=== PATIENT | female | born 1950 | race African-American/Black ===

== ENCOUNTER 2022-01-26 08:59 | Emergency (ER) | payer OTHER, SELFPAY ==
--- NOTE | ~2022-01-26 | XR_ITS ---
EXAMINATION: XR finger 1st RT min 2V DATE: 01/26/2022 09:27 INDICATION: Distal right thumb pain post injury one week prior TECHNIQUE: Dorsal palmar, lateral and oblique views of the right first digit were obtained COMPARISON: None FINDINGS: Normal alignment at the right thumb. There is widening of the scapholunate interval consistent with d isruption of the scapholunate ligament. No fracture. Polyarticular osteoarthritis, moderate to severe at the triscaphe, first carpometacarpal and first metacarpophalangeal joints and mild at the wrist, midcarpal, second carpal phalangeal and first interphalangeal joints. Tiny corticated enthesopathic o ssicle at the dorsal margin of the base of the first proximal phalanx. Soft tissues are unremarkable. IMPRESSION: 1. Moderate to severe polyarticular osteoarthritis at the right thumb and radial aspect of the carpus . No acute osseous abnormality at the rectum. 2. Age-indeterminate tear of the scapholunate ligament with widening at the scapholunate interval. Reviewed, dictated and finalized at location A. [employer] IMPRESSION: 1. Moderate to severe polyarticular osteoarthritis at the right thumb and radia l aspect of the carpus. No acute osseous abnormality at the rectum. 2. Age-indeterminate tear of the scapholunate ligament with widening at the sca pholunate interval.
[2022-01-26 09:08] VITALS: BP 170/91; PULSE 106; RESP 18; TEMP 36.7; O2SAT 100
--- NOTE | 2022-01-26 09:40 | ED.UPPEXIN ---
HPI - Extremity Injury (Upper) General Chief Complaint: Extremity Injury, Upper Stated Complaint: right thumb pain Time Seen by Provider: 01/26/22 09:40 Source: patient, RN notes reviewed and old records reviewed Mode of arrival: ambulatory Limitations: no limitations History of Present Illness HPI narrative: 71-year-old female presents to the [facility] with complaints of right thumb pain since day before . Patient states that the only reason she is coming in is because she is having difficulty pulling her thumb into her bowling ball. Tender some pain only to the IP joint of the right thumb. Has good range of motion. Sensation intact. Capillary refill under 2 seconds Onset (ago): week(s) (2) Related Data Home Medications Medication Instructions Recorded Confirmed blood sugar diagnostic (Contour #10 ea 01/03/19 01/26/22 Test Strips) metformin 500 mg tablet 500 mg PO BID 02/13/19 01/26/22 Allergies Allergy/AdvReac Type Severity Reaction Status Date / Time levofloxacin Allergy Mild NAUSEA Verified 12/20/21 15:12 lisinopril Allergy Unknown Swelling Verified 12/20/21 15:12 of Lip/Tongue/Throat Review of Systems Review of Systems: All systems reviewed & are unremarkable except as noted in HPI and below Constitutional: Constitutional: Reports no additional constitutional complaints Eyes: Eyes: Reports no additional eye complaints ENT: Reports system reviewed and no additional complaints, except as documented Cardiovascular: Cardiovascular: Reports no additional cardiovascular complaints, Denies chest pain and Denies dyspnea Respiratory: Respiratory: Reports no additional respiratory complaints, Denies chest congestion, Denies cough and Denies dyspnea Gastrointestinal: Gastrointestinal: Reports no additional gastrointestinal complaints, Denies abdominal pain, Denies nausea and Denies vomiting Musculoskeletal: Musculoskeletal: Reports as per HPI Integumentary/Breasts: Skin/Breast: Reports system reviewed and no additional complaints, except as docu Neurologic: Reports system reviewed and no additional complaints, except as documented Psychiatric: Psychiatric: Reports no additional psychiatric complaints Allergic/Immunologic: Allergic/Immunologic: Reports no additional allergic/immunologic complaints PMFSH Past Medical History Medical History Acute right-sided low back pain with right-sided sciatica Adenocarcinoma of lung Back pain of lumbar region with sciatica Body mass index [BMI] 34.0-34.9, adult (05/20/15) Body mass index [BMI] 37.0-37.9, adult (01/18/17) Body mass index [BMI] 38.0-38.9, adult (06/08/15) Chronic left shoulder pain Diabetes mellitus Emphysema, unspecified Facial edema GERD without esophagitis HLD (hyperlipidemia) Incomplete tear of left rotator cuff Left hip pain Other chronic pain Other screening mammogram Polyosteoarthritis, unspecified Right hip pain Sleep apnea in adult Trochanteric bursitis of left hip 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 There is no relevant family history pertinent to the patient complaint. Exam Const
== END 2022-01-26 10:16 | disposition home or self-care (01) ==
PROVIDERS: Emergency Provider Nurse Practitioner; PCP Emergency Medicine
DX: M18.11 Unilateral primary osteoarthritis of first carpometacarpal joint, right hand (principal); S63.601A Unspecified sprain of right thumb, initial encounter; X58.XXXA Exposure to other specified factors, initial encounter; E11.9 Type 2 diabetes mellitus without complications; K21.9 Gastro-esophageal reflux disease without esophagitis; E78.5 Hyperlipidemia, unspecified; J43.0 Unilateral pulmonary emphysema [MacLeod's syndrome]; Z87.891 Personal history of nicotine dependence
CPT/HCPCS: 73140; 99213; G0463

== ENCOUNTER 2023-07-19 15:38 | Emergency (ER) | payer OTHER, SELFPAY ==
--- NOTE | ~2023-07-19 | XR_ITS ---
EXAMINATION: XR hip LT min 2V DATE: 07/19/2023 16:18 INDICATION: Left hip pain. TECHNIQUE: 2 views of left hip were obtained. COMPARISON: Pelvis and left hip radiograph 05/20/2015 FINDINGS: Bone alignment is normal. No fracture. There is mild left hip osteoarthritis. Osteitis pubi s is noted. IMPRESSION: 1. Mild left hip osteoarthritis. Reviewed, dictated and finalized at location A.
[2023-07-19 15:54] VITALS: BP 158/57; PULSE 107; RESP 14; TEMP 37.1; O2SAT 99
--- NOTE | 2023-07-19 15:56 | ED.LOWEXIN ---
HPI - Extremity Injury (Lower) General Chief Complaint: Extremity Problem,Nontraumatic Stated Complaint: catch in left hip Time Seen by Provider: 07/19/23 15:42 Source: patient Mode of arrival: ambulatory Limitations: no limitations History of Present Illness HPI Narrative: Patient is a 73-year-old female that presents with left hip pain. Patient states the pain started 2-3 days. Denies any trauma or new activities. Denies any numbness, tingling or weakness down leg. Patient is taking tramadol and Aleve. Walks with a cane. History of bursitis in the hip. Related Data Home Medications Medication Instructions Recorded Confirmed blood sugar diagnostic (Contour #10 ea 01/03/19 07/19/23 Test Strips) metformin 500 mg tablet 500 mg PO DAILY 04/11/23 07/19/23 Allergies Allergy/AdvReac Type Severity Reaction Status Date / Time levofloxacin Allergy Mild NAUSEA Verified 07/19/23 15:46 lisinopril Allergy Unknown Swelling Verified 07/19/23 15:46 of Lip/Tongue/Throat Review of Systems Review of Systems: All systems reviewed & are unremarkable except as noted in HPI and below Constitutional: Constitutional: Denies body ache(s), Denies chills, Denies fatigue, Denies fever(s), Denies headache(s), Denies malaise and Denies weakness Eyes: Eyes: Denies blurry vision, Denies irritation and Denies loss of vision ENT: Denies otalgia, Denies headache(s), Denies nasal discharge, Denies sinus pain and Denies sore throat Cardiovascular: Cardiovascular: Denies chest pain, Denies irregular heart rhythm and Denies dyspnea Respiratory: Respiratory: Denies dyspnea Gastrointestinal: Gastrointestinal: Denies abdominal pain, Denies melena, Denies hematochezia, Denies diarrhea, Denies nausea and Denies vomiting Musculoskeletal: Musculoskeletal: Denies back pain, Denies myalgias and Reports arthralgias Integumentary/Breasts: Skin/Breast: Denies pruritus and Denies rash Neurologic: Denies headache(s), Denies loss of vision and Denies weakness Psychiatric: Psychiatric: Reports no additional psychiatric complaints Endocrine: Endocrine: Denies fatigue PMFSH Past Medical History Medical History Acute right-sided low back pain with right-sided sciatica Adenocarcinoma of lung Back pain of lumbar region with sciatica Body mass index [BMI] 34.0-34.9, adult (05/20/15) Body mass index [BMI] 37.0-37.9, adult (01/18/17) Body mass index [BMI] 38.0-38.9, adult (06/08/15) Chronic left shoulder pain Diabetes mellitus Emphysema, unspecified Facial edema GERD without esophagitis HLD (hyperlipidemia) Incomplete tear of left rotator cuff Left hip pain Other chronic pain Other screening mammogram Polyosteoarthritis, unspecified Right hip pain Sleep apnea in adult Trochanteric bursitis of left hip 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] Surgical History Surgical History S/P thoracotomy Family History Family History Father Family history of pancreatic cancer, Onset Age: 78 Mother Family history of malignant neoplasm of ovary, Onset Age: 86 Other Diabetes mellitus Family history of arthritis Hypertension Social History Social History Smoking status: Former smoker Smoking end date: 02/20/12 Alcohol intake: never Do You Feel Safe in your Home?: Yes Lack of Transportation: No Lack of Food: Never True Current Housing: I Have Housing Concerned About Future Housing: No Difficulty Paying Gas/Electric Bills: No Difficulty Paying for Meds: No Currently Unemployed: No Education: Trade/Vocational Certificate Difficulty w/ Childcare or Family Care: No Gender identity (if verbalized by the patient): Female Comments At time of signature, agree with
== END 2023-07-19 16:45 | disposition home or self-care (01) ==
PROVIDERS: Emergency Provider Nurse Practitioner Family; PCP Emergency Medicine
DX: M54.32 Sciatica, left side (principal); Z87.891 Personal history of nicotine dependence; E11.9 Type 2 diabetes mellitus without complications; K21.9 Gastro-esophageal reflux disease without esophagitis; E78.5 Hyperlipidemia, unspecified; J43.0 Unilateral pulmonary emphysema [MacLeod's syndrome]
CPT/HCPCS: 73502; 99213; G0463